=== PATIENT | male | born 1965 | race Caucasian/White ===

== ENCOUNTER 2021-10-03 06:38 | Emergency (ER) | payer MEDICAID ==
[~2021-10-03] VITALS: Ht 157.5 cm; Wt 74.0 kg
[~2021-10-03 06:38] MED LIST: AMOX-424 MT; IBUP-2029 MT; METF-414 MT
[2021-10-03 07:02] VITALS: BP 162/88
[2021-10-03] MEDS ORDERED: ACETAMINOPHEN 325MG TABLET PO ONE (08:15)
[2021-10-03] MEDS ORDERED: IBUPROFEN 400MG TABLET PO ONE (08:15)
[2021-10-03] MEDS ORDERED: IBUP-2028 MT (08:22)
[2021-10-03] MEDS ORDERED: TOPUD PO (08:22)
== END 2021-10-03 08:43 | disposition home or self-care (01) ==
LOC: ER 06:38
DX: S40.012A Contusion of left shoulder, initial encounter (principal); W23.0XXA Caught, crushed, jammed, or pinched between moving objects, initial encounter; Y93.89 Activity, other specified; Y92.9 Unspecified place or not applicable
CPT/HCPCS: 73030; 99283

== ENCOUNTER 2021-10-05 11:41 | Emergency (ER) | payer MEDICAID ==
[~2021-10-05] VITALS: Ht 165.1 cm; Wt 74.0 kg
[~2021-10-05 11:41] MED LIST changes: +IBUP-2028 MT; +TOPUD PO
[2021-10-05 12:01] VITALS: BP 153/97
== END 2021-10-05 12:57 | disposition home or self-care (01) ==
LOC: ER 11:41
DX: S40.012A Contusion of left shoulder, initial encounter (principal); X58.XXXA Exposure to other specified factors, initial encounter; Y93.89 Activity, other specified; Y92.89 Other specified places as the place of occurrence of the external cause; Y99.8 Other external cause status
CPT/HCPCS: 99281